=== PATIENT | male | born 1955 | race Caucasian/White ===

== ENCOUNTER 2017-05-12 13:48 | Emergency (ER) ==
[2017-05-12 13:56] VITALS: BP 172/104; TEMP 96.9; BMI 21.4
[2017-05-12] MEDS ORDERED: SOLU-MEDROL 125 MG IM STA ×2 (15:03→15:13)
--- NOTE | 2017-05-12 15:04 | ED.PDOC ---
General ED Provider: Dr. DENEEN MORAN JR Chief Complaint: Non-specific Complaint Stated Complaint: after awakening--felt bump on left side of tongue--went to [place] and ate breakfast--came home and looked at tongue and noted bump was larger--making it difficult to talk--able to swallow--called office--advised to come in--then sent to er--states he feels nervous--but it is sl better--dr anton told him might be due to med lisinopril--states he has been on it for awhile--no previous episode 96.9 79 20 172/104 01/20 Time Seen by Physician: 15:04 Mode of Arrival: Walk-In Information Source: Patient Exam Limitations: No limitations Primary Care Provider: TIM ANTON Nursing and Triage Documentation Reviewed and Agree: No Review of Systems - Review Of Systems Constitutional: Reports: No symptoms Eyes: Reports: No symptoms Ears, Nose, Mouth, Throat: Reports: Mouth swelling (TONGUE) Respiratory: Reports: No symptoms Cardiac: Reports: No symptoms GI: Reports: No symptoms : Reports: No symptoms Musculoskeletal: Reports: No symptoms Skin: Reports: No symptoms Neurological: Reports: No symptoms Endocrine: Reports: No symptoms Hematologic/Lymphatic: Reports: No symptoms All Other Systems: Other Past Medical History - Past Medical History Endocrine: Reports: None Cardiovascular: Reports: Hypertension Respiratory: Reports: None Hematological: Reports: None Gastrointestinal: Reports: GERD Genitourinary: Reports: None Neuro/Psych: Reports: Anxiety Musculoskeletal: Reports: None Cancer: Reports: None - Surgical History General Surgical History: Reports: Other (hemorrhoids ) - Family History Family History: Reports: Unknown - Social History Smoking Status: Current every day smoker, Heavy tobacco smoker Hx Substance Use: No Alcohol Screening: Occasionally Physical Exam - Physical Exam Appearance: Well-appearing Pain Distress: Moderate Eyes: CASIE, EOMI, Conjunctiva clear ENT: Ears normal, Nose normal Neck: Supple (NOTE SWELLING RIGHT TONGUE AND A SITE LATERAL TONGUE WCHICH IS A RAISED SITE) Respiratory: Airway patent, Breath sounds clear, Breath sounds equal, Respirations nonlabored Cardiovascular: RRR, Pulses normal, No rub, No murmur GI/: Soft, Nontender, No masses, Bowel sounds normal, No Organomegaly Musculoskeletal: Normal strength, ROM intact, No edema, No calf tenderness Skin: Warm, Dry, Normal color Neurological: Sensation intact, Motor intact, Reflexes intact, Cranial nerves intact, Alert, Oriented Psychiatric: Affect appropriate, Mood appropriate Critical Care Note - Critical Care Note Total Time (mins): 5 Course - Course Orders, Labs, Meds: Orders Category Date Time Status Methylprednisolone Sod Succ/Pf [Solu-Medrol 125 mg] MEDS 05/12/17 15:03 Discontinued 125 mg IM ONCE STA Penicillin V Potassium [Penicillin Vk Tab] MEDS 05/12/17 15:15 Discontinued 500 mg PO ONCE STA Medications Discontinued Medications Generic Name Dose Route Start Last Admin Trade Name Stephenq PRN Reason Stop Dose Admin Methylprednisolone Sodium Succinate 125 mg 05/12/17 15:03 05/12/17 15:16 Solu-Medrol 125 Mg IM 05/12/17 15:04 125 mg ONCE STA Administration Penicillin V Potassium 500 mg 05/12/17 15:15 05/12/17 15:34 Penicillin Vk Tab PO 05/12/17 15:16 500 mg ONCE STA Administration Vital Signs: Temp Pulse Resp BP Pulse Ox 05/12/17 13:48 96.9 F L 79 20 172/104 H 96 Departure - Departure Time of Disposition: 16:17 Disposition: HOME SELF-CARE Discharge Problem: Tongue swelling Instructions: Angioedema (ED) Condition: Good Pt referred to PMD for follow-up: Yes Additional Instructions: stop Lisinopril, discuss with PMD return if worse Please follow-up with Dr. Anton in 1-5 days. antibiotic for five days- penicillin Prescriptions: Penicillin V Potassium 500 mg PO QID #30 tablet Allergies/Adverse Reactions: Allergies No Known Allergies Allergy (Verified 05/12/17 13:59) Home Medications: Ambulatory Orders Alprazolam [Xanax] 0.5 mg PO DAILY 02/13/13 Pantoprazole Sodium [Protonix] 40 mg PO DAILY 02/13/13 Penicillin V Potassium 500 mg PO QID #30 tablet 05/12/17
[2017-05-12] MEDS ORDERED: PENICILLIN VK TAB PO STA (15:15)
== END 2017-05-12 16:24 | disposition home or self-care (01) ==
LOC: ED 13:48
DX: T78.3XXA Angioneurotic edema, initial encounter (principal); I10 Essential (primary) hypertension; F17.210 Nicotine dependence, cigarettes, uncomplicated
CPT/HCPCS: 96372; 99282

== ENCOUNTER 2017-06-09 14:10 | Outpatient (CLI) ==
[2013-02-14 10:45] VITALS: TEMP 98.6
--- NOTE | 2017-06-09 14:40 | DI ---
Exam: Two x-rays of the chest. Comparison: 10/21/2015. Reason for exam: Cough and congestion. FINDINGS: No pneumothorax, pleural effusion, or focal consolidation. There is similar appearing ángel nting of the costophrenic angles on the lateral view with flattening of the hemidiaphragms. The cardi ac silhouette is not enlarged. Impression: Stable appearance of the chest with imaging findings suggesting chronic obstructive pulmonary disease .
== END 2017-06-09 14:11 | disposition home or self-care (01) ==
LOC: RAD 14:10
PROVIDERS: ATTEND Internal Medicine
DX: R05 Cough (principal); R09.89 Other specified symptoms and signs involving the circulatory and respiratory systems

== ENCOUNTER 2018-05-10 06:40 | Day surgery (SDC) ==
[2018-05-10] MEDS ORDERED: DIPRIVAN 20 ML VIAL IVP ONE (07:56)
[2018-05-10 15:59] VITALS: BP 112/56; TEMP 98.5
--- NOTE | 2018-05-11 06:57 | OP ---
INDICATIONS FOR PROCEDURE: 63-year-old gentleman presents for a surveillance exam. He has a past history of adenomatous polyps with his last colonoscopy being five years ago. MEDICATIONS: SEE ANESTHESIA NOTES. PROCEDURE: COLONOSCOPY, SNARE POLYPECTOMY. REPORT: The risks, benefits, alternatives and limitations were discussed in detail with the patient. Informed consent was obtained. After adequate sedation was achieved, a digital rectal exam revealed good tone, no masses. The colonoscope was introduced into the rectum and advanced under direct visual guidance to the cecum. The cecum was identified by the appendiceal orifice and IC valve. I then slowly withdrew the scope in a circumferential manner examining the mucosa quite carefully. I looked on the proximal and distal side of folds and flexures as best as possible. I was able to retroflex the scope in the right colon and left colon to increase visualization. The colonic mucosa was unremarkable its entire length other than a moderate amount of diverticulosis scattered throughout the sigmoid colon. In the rectosigmoid and rectal area there were six small polyps. These range in size from 4 to 5 mm. They all appeared benign. I removed these by snare technique. Four of the six polyps were successfully retrieved. The other two were destroyed. On retroflex view of the anal canal there were small internal hemorrhoids. The prep was good. The withdrawal time was 9 minutes and 50 seconds. The patient tolerated the procedure well with stable vital signs and pulse oximetry throughout. IMPRESSION: 1. SIX (6) BENIGN APPEARING POLYPS REMOVED FROM THE RECTAL AREA. 2. SIGMOID DIVERTICULOSIS. 3. 1+ INTERNAL HEMORRHOIDS. RECOMMENDATIONS: 1. High fiber diet. 2. Office visit as needed. 3. Await pathology results. If these polyps are adenomatous then I suggest a repeat colonoscopy examination again in three years otherwise surveillance examination again in five years, sooner if there are any signs or symptoms to indicate otherwise. CC: DR. KEZIA LOVE
== END 2018-05-10 08:55 | disposition home or self-care (01) ==
LOC: SURG 06:40
PROVIDERS: ATTEND Internal Medicine Gastroenterology
DX: K62.1 Rectal polyp (principal); K64.0 First degree hemorrhoids; K57.90 Diverticulosis of intestine, part unspecified, without perforation or abscess without bleeding